=== PATIENT | male | born 1955 | race Caucasian/White ===

== ENCOUNTER 2017-03-23 09:07 | Day surgery (SDC) | payer OTHER ==
[~2017-03-23] VITALS: Ht 180.3 cm; Wt 96.9 kg
[2017-03-23 09:28] VITALS: Ht 180.3 cm; Wt 96.9 kg
[2017-03-23] MEDS ORDERED: METOPROLOL (09:57)
[2017-03-23] MEDS ORDERED: LANTUS (09:57)
[2017-03-23] MEDS ORDERED: ASPIRIN (09:57)
[2017-03-23] MEDS ORDERED: SIMVASTATIN (09:57)
[2017-03-23] MEDS ORDERED: INSULIN PEN (09:57)
[2017-03-23] MEDS ORDERED: VICTOZA (09:57)
[2017-03-23] MEDS ORDERED: FOLIC ACID (09:57)
[2017-03-23] MEDS ORDERED: LOSARTAN (09:57)
[2017-03-23] MEDS ORDERED: TOUJEO SOLOSTAR (09:57)
[2017-03-23] MEDS ORDERED: DOCUSATE SODIUM (09:57)
[2017-03-23] MEDS ORDERED: ATORVASTATIN (09:57)
[2017-03-23] MEDS ORDERED: LINZESS (09:57)
[2017-03-23] MEDS ORDERED: TAMSULOSIN (09:57)
[2017-03-23] MEDS ORDERED: LEVOTHYROXINE (09:57)
[2017-03-23] MEDS ORDERED: ISOSORBIDE MONONITRA (09:57)
[2017-03-23] MEDS ORDERED: OMEPRAZOLE (09:57)
[2017-03-23] MEDS ORDERED: FUROSEMIDE (09:57)
[2017-03-23] MEDS ORDERED: CLONIDINE (09:57)
[2017-03-23] MEDS ORDERED: AMLODIPINE (09:57)
[2017-03-23 10:09] VITALS: BP 118/62; PULSE 59; RESP 18
[2017-03-23] MEDS ORDERED: PROPOFOL 20 ML ONE (10:26)
[2017-03-23] MEDS ORDERED: MIDAZOLAM 1 MG/ML 2 ML INJ ONE (10:26)
[2017-03-23] MEDS ORDERED: FENTAnyl 50 MCG/ML VIAL ONE (10:27)
[2017-03-23] MEDS ORDERED: ETOMIDATE 20 MG INJ ONE (10:35)
--- NOTE | 2017-03-23 11:25 | OPPN ---
Date/Time of Note Date/Time of Note DATE: 03/23/17 TIME: 11:20 Proc Note GI Procedure date: Mar 23, 2017 Pre-procedure Diagnosis Patient presenting with history of occult GI bleeding rule out peptic ulcer disease Post-procedure Diagnosis Severe erosive distal esophagitis Possible superficial duodenal ulcer Mild diffuse gastritis Operation Performed EGD and biopsy Surgeon: DENNIS SANTOS MD Anesthesiologist: MELISSA DOMINGUEZ MD Estimated blood loss: none Transfusion Required: no Specimens Gastric biopsy duodenal biopsy and esophageal biopsy Grafts/Implants None Tubes/Drains None Complications: no Complications None Pt Condition post procedure: stable (Stable) Disposition: PACU, other Indications History of occult GI bleeding Operative\Procedure Findings EGD Procedure Description Procedure After the informed written consent is obtained patient was ostial in the left lateral side intravenous anesthesia was given by anesthesiology Dr. Kvng tobias. When the patient become somnolent Olympus video upper endoscope was introduced into the oropharynx Endoscopic multiple linear erosions were noted just above the GE junction indicating Rains classification a Biopsies were done to rule out Lopez's esophagus Scope with the stem was advanced into the stomach a diffuse erythema of the stomach noted in a patchy distribution biopsy was done from the antrum lesser curvature in the fundus to rule out H. pylori infection Scope with this and was advanced into the duodenum duodenum showed evidence of multiple superficial ulcers Biopsy was done to rule out celiac sprue Scope with this and was withdrawn no additional abnormalities detected and the procedure was terminated And recommend Protonix 40 mg a day in the morning for 3 months Wait for the pathology DENNIS SANTOS MD Mar 23, 2017 11:24
--- NOTE | 2017-03-23 11:30 | OPPN ---
Date/Time of Note Date/Time of Note DATE: 03/23/17 TIME: 11:27 Proc Note GI Procedure date: Mar 23, 2017 Pre-procedure Diagnosis Occult GI bleeding rule out colon polyps Post-procedure Diagnosis 3 mm raised polyp noted in the rectum this was removed with the cold biopsy forceps #2 hemorrhoids Operation Performed Colonoscopy and biopsy Surgeon: DENNIS SANTOS MD Anesthesiologist: MELISSA DOMINGUEZ MD Estimated blood loss: none Transfusion Required: no Specimens Rectal polyp Grafts/Implants: none Complications: no Pt Condition post procedure: stable (Stable) Disposition: PACU, other Indications Occult GI bleeding rule out colon polyps Operative\Procedure Findings Colonoscopy and biopsy Procedure Description After the informed written consent is obtained patient was ostial in the left lateral side intravenous anesthesia was given by anesthesiologist Dr. Romano , when the patient become somnolent Olympus videocolonoscope was introduced into the rectum and advanced all the way to the cecum 3 examination was carried out about 5 cm above the anus there is evidence of a 3 mm raised polyp was noted this was removed with the help of a cold biopsy forceps Polyp was sent. Procedure was terminated please send copy to my office DENNIS Osorio dr, MD Mar 23, 2017 11:30
[2017-03-23 11:46] VITALS: BP 112/67; PULSE 57; RESP 14
== END 2017-03-23 12:14 | disposition home or self-care (01) ==
LOC: GIL 09:07
PROVIDERS: ATTEND Internal Medicine Gastroenterology
DX: Z12.11 Encounter for screening for malignant neoplasm of colon (principal); K29.50 Unspecified chronic gastritis without bleeding; K62.1 Rectal polyp; K21.0 Gastro-esophageal reflux disease with esophagitis; K29.70 Gastritis, unspecified, without bleeding; K64.9 Unspecified hemorrhoids; E03.9 Hypothyroidism, unspecified; E11.9 Type 2 diabetes mellitus without complications; E66.9 Obesity, unspecified; Z68.29 Body mass index [BMI] 29.0-29.9, adult
CPT/HCPCS: 43239; 45378; 82962; 88305; 88312; 88313; J2250; J3010; Z7610

== ENCOUNTER 2018-12-14 15:24 | Emergency (ER) | payer SELFPAY ==
[~2018-12-14] VITALS: Ht 177.8 cm; Wt 97.2 kg
[~2018-12-14 15:24] MED LIST: AMLODIPINE; ASPIRIN; ATORVASTATIN; CLONIDINE; DOCUSATE SODIUM; FOLIC ACID; FUROSEMIDE; INSULIN PEN; ISOSORBIDE MONONITRA; LANTUS; LEVOTHYROXINE; LINZESS; LOSARTAN; METOPROLOL; OMEPRAZOLE; SIMVASTATIN; TAMSULOSIN; TOUJEO SOLOSTAR; VICTOZA
[2018-12-14 15:28] VITALS: BP 143/73; PULSE 73; RESP 18; Ht 177.8 cm; Wt 97.2 kg
== END 2018-12-15 07:56 | disposition left against medical advice (07) ==
LOC: E/R 15:24
DX: Z53.21 Procedure and treatment not carried out due to patient leaving prior to being seen by health care provider (principal)